=== PATIENT | female | born 1950 | race Caucasian/White ===

== ENCOUNTER 2024-07-20 05:19 | Day surgery (SDC) | payer MEDICARE, BC ==
[2024-07-20] MEDS ORDERED: BUPIVACAINE 0.5 % PF 150 MG/30 ML VIAL ONE (06:06)
[2024-07-20] MEDS ORDERED: ANESTHESIA TRAY IN PYXIS 1 EA TRAY MC ONE (06:06)
[2024-07-20] MEDS ORDERED: ROCURONIUM BROMIDE 50 MG/5 ML ONE (06:21)
[2024-07-20] MEDS ORDERED: FENTANYL PF 250MCG/5ML AMPUL ONE (06:21)
[2024-07-20] MEDS ORDERED: ONDANSETRON HCL/PF 4 MG/2 ML VIAL ONE (08:07)
== END 2024-07-20 09:10 | disposition home or self-care (01) ==
LOC: DS 05:19
PROVIDERS: ATTEND Specialist
DX: S83.282A Other tear of lateral meniscus, current injury, left knee, initial encounter (principal); S83.242A Other tear of medial meniscus, current injury, left knee, initial encounter; D17.24 Benign lipomatous neoplasm of skin and subcutaneous tissue of left leg; M23.42 Loose body in knee, left knee; M94.262 Chondromalacia, left knee; I10 Essential (primary) hypertension; E78.5 Hyperlipidemia, unspecified; E11.9 Type 2 diabetes mellitus without complications; Z72.89 Other problems related to lifestyle; Z79.84 Long term (current) use of oral hypoglycemic drugs; Z79.899 Other long term (current) drug therapy; Z90.89 Acquired absence of other organs; Z98.890 Other specified postprocedural states; X58.XXXA Exposure to other specified factors, initial encounter; Y93.89 Activity, other specified; Y92.89 Other specified places as the place of occurrence of the external cause; Y99.8 Other external cause status
CPT/HCPCS: 27339; 29880; 82962; 88304; A4217; J0360; J0461; J0690; J2405; J2704; J3010; J3490; J7030